=== PATIENT | male | born 1975 | race African-American/Black ===

== ENCOUNTER 2019-06-03 08:58 | Inpatient (IN) | payer MEDICAID ==
[~2019-06-03] VITALS: Ht 180.3 cm; Wt 104.0 kg
[2019-06-03 09:55] LABS: APPEARANCE,URINE CLOUDY (CLEAR); GLUCOSE, URINE (UA) >=1000 mg/dL (NEGATIVE); KETONES,URINE 15 mg/dL (NEGATIVE); LEUKOCYTE ESTERASE ,URINE NEGATIVE (NEGATIVE); NITRATE,URINE NEGATIVE (NEGATIVE); OCCULT BLOOD,URINE LARGE (NEGATIVE); PH,URINE 5.5 (5.0-8.0); PROTEIN,URINE SEE CONFIRM (NEGATIVE)
[2019-06-03 09:58] LABS: BILIRUBIN,URINE PRELIM. POSITIVE (NEGATIVE)
[2019-06-03 10:01] LABS: AMPHET/METH SCREEN,URINE POSITIVE (NEGATIVE); BARBITURATE SCREEN, URINE NEGATIVE (NEGATIVE); BENZODIAZEPINES SCREEN,URINE NEGATIVE (NEGATIVE); CANNABINOID SCREEN,URINE NEGATIVE (NEGATIVE); COCAINE SCREEN,URINE NEGATIVE (NEGATIVE); METHADONE SCREEN, URINE NEGATIVE (NEGATIVE); OPIATE SCREEN,URINE NEGATIVE (NEGATIVE); PHENCYCLIDINE SCREEN,URINE NEGATIVE (NEGATIVE)
[2019-06-03 10:05] LABS: SULFOSALICYLIC ACID,URINE 3+ (Negative)
[2019-06-03 10:07] LABS: BACTERIA,URINE Moderate /HPF (None Seen); WBC,URINE 0-2 /HPF (0-5)
[2019-06-03 10:08] LABS: COARSE GRANULAR CASTS,URINE 0-2 /LPF (None Seen); SQUAMOUS EPITHELIAL CELL,UR Few /LPF (None Seen)
[2019-06-03 10:35] LABS: BASOPHILS % (AUTO) 0.1 % (0.0-2.0); EOSINOPHILS % (AUTO) 0.2 % (1.0-6.0); HEMATOCRIT 43.1 % (41-53); HEMOGLOBIN 13.7 g/dL (13.5-17.5); LYMPHOCYTES # (AUTO) 1.8 K/uL (1.0-4.8); LYMPHOCYTES % (AUTO) 19.6 % (22.0-44.0); MEAN CORPUSCULAR HEMOGLOBIN 25.7 pg (26.0-34.0); MEAN CORPUSCULAR HGB CONC 31.9 G/dL (31.0-37.0); MEAN CORPUSCULAR VOLUME 81 fL (80-100); MONOCYTES # (AUTO) 0.5 K/uL (0.1-1.0); MONOCYTES % (AUTO) 5.7 % (2.0-9.0); NEUTROPHILS # (AUTO) 6.8 K/uL (1.8-7.7); NEUTROPHILS % (AUTO) 74.4 % (40.0-70.0); PLATELET COUNT (AUTO) 232 K/uL (150-450); RED BLOOD CELL COUNT(AUTO) 5.35 MIL/uL (4.50-5.90); RED CELL DISTRIBUTION WIDTH 13.7 % (11.5-14.5)
[2019-06-03 10:46] LABS: ANION GAP 9 mmol/L (8-16); CALCIUM, TOTAL 8.8 mg/dL (8.8-10.5); CARBON DIOXIDE 27 mmol/L (22-29); CHLORIDE 101 mmol/L (98-107); CREATININE 1.17 mg/dL (0.60-1.30); GLOMERULAR FILTR. RATE CALC > 60 mL/min (>60); GLUCOSE,RANDOM 188 mg/dL (70-110); POTASSIUM 3.4 mmol/L (3.5-5.1); SODIUM SERUM 137 mmol/L (136-145); UREA NITROGEN, BLOOD 15 mg/dL (7-18)
[2019-06-03 11:05] LABS: ALANINE AMINOTRANSFERASE 121 U/L (12-78); ALBUMIN 3.7 g/dL (3.4-5.0); ALKALINE PHOSPHATASE 70 U/L (46-116); ASPARTATE AMINOTRANSFERASE 448 U/L (15-37); BILIRUBIN,TOTAL 0.6 mg/dL (0.1-1.0); TOTAL PROTEIN, SERUM 7.2 g/dL (6.4-8.2)
[2019-06-03 11:17] LABS: LACTIC ACID 3.8 mmol/L (0.4-2.0)
[2019-06-03 12:08] LABS: CREATINE KINASE, TOTAL ONLY 36547 U/L (39-308)
[2019-06-03] MEDS ORDERED: SODIUM CHLORIDE 0.9% 1,000 ML IV ONE (12:30)
[2019-06-03] MEDS ORDERED: DEXTROSE 50%-WATER 25 GM/50 ML SYRINGE IVP PRN (13:00)
[2019-06-03] MEDS ORDERED: LORazepam 2 MG/ML VIAL IVP PRN (13:00)
[2019-06-03] MEDS ORDERED: POTASSIUM CHLORIDE 20 MEQ ER TABLET PO PRN (13:00)
[2019-06-03] MEDS ORDERED: POTASSIUM CHL 10 MEQ/WATER 50 ML IV PRN (13:00)
[2019-06-03] MEDS: SODIUM CHLORIDE 0.9% 1,000 ML IV SCH ×2 (13:32→22:55)
[2019-06-03] MEDS: CefTRIAXone 1 GM/DEXTROSE 50 ML IV SCH (13:32)
[2019-06-03] MEDS: DOCUSATE SODIUM 100 MG CAPSULE PO SCH (21:00)
[2019-06-03 22:25] LABS: GLUCOSE,POINT OF CARE 181 MG/DL (70-110)
[2019-06-03 23:00] VITALS: BP 139/78
[2019-06-03] MEDS: INSULIN LISPRO 100 UNITS/ML SQ PRN (23:36)
[2019-06-04 05:01] VITALS: BP 141/61
[2019-06-04] MEDS: ACETAMINOPHEN 325 MG TABLET PO PRN ×2 (05:17→20:19)
[2019-06-04 07:41] VITALS: BP 128/75
[2019-06-04 08:49] LABS: ANION GAP 4 mmol/L (8-16); CALCIUM, TOTAL 8.5 mg/dL (8.8-10.5); CARBON DIOXIDE 27 mmol/L (22-29); CHLORIDE 103 mmol/L (98-107); CREATININE 0.75 mg/dL (0.60-1.30); GLUCOSE,RANDOM 163 mg/dL (70-110); POTASSIUM 3.7 mmol/L (3.5-5.1); SODIUM SERUM 134 mmol/L (136-145); UREA NITROGEN, BLOOD 10 mg/dL (7-18)
[2019-06-04] MEDS: MULTIVITAMINS WITH MINERALS, THERAPEUTIC TABLET PO SCH (09:58)
[2019-06-04] MEDS: SODIUM CHLORIDE 0.9% 1,000 ML IV SCH ×2 (09:58→21:03)
[2019-06-04] MEDS: FAMOTIDINE 20 MG TABLET PO SCH (09:58)
[2019-06-04] MEDS: ASPIRIN 81 MG CHEWABLE TABLET PO SCH (09:58)
[2019-06-04] MEDS: DOCUSATE SODIUM 100 MG CAPSULE PO SCH ×2 (09:58→20:20)
[2019-06-04 10:11] LABS: CREATINE KINASE, TOTAL ONLY 15772 U/L (39-308); GLOMERULAR FILTR. RATE CALC > 60 mL/min (>60)
[2019-06-04 10:49] VITALS: BP 146/76
[2019-06-04 11:05] LABS: GLUCOMETER DEV NAME(LOC) 5N.2; GLUCOSE,POINT OF CARE 184 MG/DL (70-110)
[2019-06-04] MEDS: CefTRIAXone 1 GM/DEXTROSE 50 ML IV SCH (12:34)
[2019-06-04] MEDS: INSULIN LISPRO 100 UNITS/ML SQ PRN ×2 (12:35→20:49)
[2019-06-04 15:40] VITALS: BP 127/69
[2019-06-04 20:00] VITALS: BP 140/75
[2019-06-04 22:37] LABS: GLUCOMETER DEV NAME(LOC) 5N.2; GLUCOSE,POINT OF CARE 180 MG/DL (70-110)
[2019-06-04 22:37] LABS: GLUCOMETER DEV NAME(LOC) 5N.2; GLUCOSE,POINT OF CARE 167 MG/DL (70-110)
[2019-06-04 22:37] LABS: GLUCOMETER DEV NAME(LOC) 5N.2; GLUCOSE,POINT OF CARE 168 MG/DL (70-110)
[2019-06-05] VITALS (7 sets, daily range): BP systolic 102–140; BP diastolic 46–84
[2019-06-05] MEDS: SODIUM CHLORIDE 0.9% 1,000 ML IV SCH ×4 (04:15→23:48)
[2019-06-05] MEDS: INSULIN LISPRO 100 UNITS/ML SQ PRN ×4 (06:39→21:55)
[2019-06-05 06:43] LABS: BASOPHILS % (AUTO) 0.4 % (0.0-2.0); EOSINOPHILS % (AUTO) 1.9 % (1.0-6.0); HEMOGLOBIN 12.4 g/dL (13.5-17.5); LYMPHOCYTES # (AUTO) 2.2 K/uL (1.0-4.8); LYMPHOCYTES % (AUTO) 26.7 % (22.0-44.0); MEAN CORPUSCULAR HEMOGLOBIN 25.4 pg (26.0-34.0); MEAN CORPUSCULAR HGB CONC 31.8 G/dL (31.0-37.0); MEAN CORPUSCULAR VOLUME 80 fL (80-100); MONOCYTES # (AUTO) 0.5 K/uL (0.1-1.0); MONOCYTES % (AUTO) 6.5 % (2.0-9.0); NEUTROPHILS # (AUTO) 5.3 K/uL (1.8-7.7); NEUTROPHILS % (AUTO) 64.5 % (40.0-70.0); PLATELET COUNT (AUTO) 237 K/uL (150-450); RED BLOOD CELL COUNT(AUTO) 4.88 MIL/uL (4.50-5.90); RED CELL DISTRIBUTION WIDTH 13.6 % (11.5-14.5)
[2019-06-05 07:36] LABS: ALANINE AMINOTRANSFERASE 86 U/L (12-78); ALBUMIN 2.8 g/dL (3.4-5.0); ALKALINE PHOSPHATASE 64 U/L (46-116); ANION GAP 5 mmol/L (8-16); ASPARTATE AMINOTRANSFERASE 164 U/L (15-37); BILIRUBIN,TOTAL 0.2 mg/dL (0.1-1.0); CALCIUM, TOTAL 8.8 mg/dL (8.8-10.5); CARBON DIOXIDE 28 mmol/L (22-29); CHLORIDE 102 mmol/L (98-107); CREATININE 0.73 mg/dL (0.60-1.30); GLUCOSE,RANDOM 155 mg/dL (70-110); POTASSIUM 3.7 mmol/L (3.5-5.1); SODIUM SERUM 135 mmol/L (136-145); TOTAL PROTEIN, SERUM 6.2 g/dL (6.4-8.2); UREA NITROGEN, BLOOD 9 mg/dL (7-18)
[2019-06-05 07:37] LABS: CREATINE KINASE, TOTAL ONLY 5556 U/L (39-308); GLOMERULAR FILTR. RATE CALC > 60 mL/min (>60)
[2019-06-05] MEDS: ASPIRIN 81 MG CHEWABLE TABLET PO SCH (09:04)
[2019-06-05] MEDS: DOCUSATE SODIUM 100 MG CAPSULE PO SCH ×2 (09:04→21:43)
[2019-06-05] MEDS: FAMOTIDINE 20 MG TABLET PO SCH (09:04)
[2019-06-05] MEDS: MULTIVITAMINS WITH MINERALS, THERAPEUTIC TABLET PO SCH (09:04)
[2019-06-05] MEDS: IBUPROFEN 400 MG TABLET PO PRN (09:04)
[2019-06-05] MEDS: CefTRIAXone 1 GM/DEXTROSE 50 ML IV SCH (12:23)
[2019-06-05 17:01] LABS: GLUCOMETER DEV NAME(LOC) 5N.2; GLUCOSE,POINT OF CARE 233 MG/DL (70-110)
[2019-06-05 17:02] LABS: GLUCOMETER DEV NAME(LOC) 5N.1; GLUCOSE,POINT OF CARE 199 MG/DL (70-110)
[2019-06-05 23:15] LABS: GLUCOMETER DEV NAME(LOC) 5N.1; GLUCOSE,POINT OF CARE 195 MG/DL (70-110)
[2019-06-05 23:16] LABS: GLUCOMETER DEV NAME(LOC) 5N.1; GLUCOSE,POINT OF CARE 161 MG/DL (70-110)
[2019-06-06] VITALS (7 sets, daily range): BP systolic 107–147; BP diastolic 52–78
[2019-06-06] MEDS: ACETAMINOPHEN 325 MG TABLET PO PRN (00:21)
[2019-06-06] MEDS: IBUPROFEN 400 MG TABLET PO PRN ×2 (00:22→19:50)
[2019-06-06 01:06] LABS: GLUCOMETER DEV NAME(LOC) 5N.2; GLUCOSE,POINT OF CARE 154 MG/DL (70-110)
[2019-06-06] MEDS: SODIUM CHLORIDE 0.9% 1,000 ML IV SCH ×3 (06:30→22:08)
[2019-06-06] MEDS: INSULIN LISPRO 100 UNITS/ML SQ PRN ×4 (06:48→20:51)
[2019-06-06 08:46] LABS: BASOPHILS % (AUTO) 0.3 % (0.0-2.0); EOSINOPHILS % (AUTO) 2.4 % (1.0-6.0); HEMOGLOBIN 12.6 g/dL (13.5-17.5); LYMPHOCYTES # (AUTO) 2.6 K/uL (1.0-4.8); LYMPHOCYTES % (AUTO) 32.5 % (22.0-44.0); MEAN CORPUSCULAR HEMOGLOBIN 24.9 pg (26.0-34.0); MEAN CORPUSCULAR HGB CONC 31.4 G/dL (31.0-37.0); MEAN CORPUSCULAR VOLUME 79 fL (80-100); MONOCYTES # (AUTO) 0.6 K/uL (0.1-1.0); MONOCYTES % (AUTO) 7.2 % (2.0-9.0); NEUTROPHILS # (AUTO) 4.6 K/uL (1.8-7.7); NEUTROPHILS % (AUTO) 57.6 % (40.0-70.0); PLATELET COUNT (AUTO) 264 K/uL (150-450); RED BLOOD CELL COUNT(AUTO) 5.05 MIL/uL (4.50-5.90); RED CELL DISTRIBUTION WIDTH 13.5 % (11.5-14.5)
[2019-06-06] MEDS: DOCUSATE SODIUM 100 MG CAPSULE PO SCH ×2 (09:00→21:00)
[2019-06-06] MEDS: FAMOTIDINE 20 MG TABLET PO SCH (09:00)
[2019-06-06 09:02] LABS: ANION GAP 7 mmol/L (8-16); CALCIUM, TOTAL 8.6 mg/dL (8.8-10.5); CARBON DIOXIDE 27 mmol/L (22-29); CHLORIDE 103 mmol/L (98-107); CREATININE 0.75 mg/dL (0.60-1.30); GLOMERULAR FILTR. RATE CALC > 60 mL/min (>60); GLUCOSE,RANDOM 177 mg/dL (70-110); POTASSIUM 3.8 mmol/L (3.5-5.1); SODIUM SERUM 137 mmol/L (136-145); UREA NITROGEN, BLOOD 9 mg/dL (7-18)
[2019-06-06 09:25] LABS: ALANINE AMINOTRANSFERASE 73 U/L (12-78); ALBUMIN 2.9 g/dL (3.4-5.0); ALKALINE PHOSPHATASE 67 U/L (46-116); ASPARTATE AMINOTRANSFERASE 79 U/L (15-37); BILIRUBIN,TOTAL 0.2 mg/dL (0.1-1.0); TOTAL PROTEIN, SERUM 6.4 g/dL (6.4-8.2)
[2019-06-06 09:27] LABS: CREATINE KINASE, TOTAL ONLY 2182 U/L (39-308)
[2019-06-06] MEDS: ASPIRIN 81 MG CHEWABLE TABLET PO SCH (10:16)
[2019-06-06] MEDS: MULTIVITAMINS WITH MINERALS, THERAPEUTIC TABLET PO SCH (10:16)
[2019-06-06] MEDS: CefTRIAXone 1 GM/DEXTROSE 50 ML IV SCH (12:31)
[2019-06-06 18:31] LABS: GLUCOMETER DEV NAME(LOC) 6N.2; GLUCOSE,POINT OF CARE 172 MG/DL (70-110)
[2019-06-06 23:21] LABS: GLUCOMETER DEV NAME(LOC) 5N.2; GLUCOSE,POINT OF CARE 222 MG/DL (70-110)
[2019-06-06 23:21] LABS: GLUCOMETER DEV NAME(LOC) 5N.2; GLUCOSE,POINT OF CARE 143 MG/DL (70-110)
[2019-06-07 01:25] LABS: GLUCOMETER DEV NAME(LOC) 4E.2; GLUCOSE,POINT OF CARE 191 MG/DL (70-110)
[2019-06-07 04:00] VITALS: BP 120/71
[2019-06-07] MEDS: SODIUM CHLORIDE 0.9% 1,000 ML IV SCH ×3 (05:08→15:40)
[2019-06-07 05:37] LABS: GLUCOMETER DEV NAME(LOC) 4E.2; GLUCOSE,POINT OF CARE 183 MG/DL (70-110)
[2019-06-07] MEDS: INSULIN LISPRO 100 UNITS/ML SQ PRN ×4 (05:53→21:59)
[2019-06-07 07:26] VITALS: BP 120/62
[2019-06-07] MEDS: DOCUSATE SODIUM 100 MG CAPSULE PO SCH ×2 (09:00→21:00)
[2019-06-07] MEDS: MULTIVITAMINS WITH MINERALS, THERAPEUTIC TABLET PO SCH (09:31)
[2019-06-07] MEDS: FAMOTIDINE 20 MG TABLET PO SCH (09:31)
[2019-06-07] MEDS: ASPIRIN 81 MG CHEWABLE TABLET PO SCH (09:31)
[2019-06-07] MEDS: RisperiDONE 1 MG TABLET PO SCH ×2 (09:31→21:05)
[2019-06-07 11:32] VITALS: BP 135/81
[2019-06-07] MEDS: CefTRIAXone 1 GM/DEXTROSE 50 ML IV SCH (12:20)
[2019-06-07 15:22] VITALS: BP 129/65
[2019-06-07 17:26] LABS: GLUCOMETER DEV NAME(LOC) 6N.2; GLUCOSE,POINT OF CARE 167 MG/DL (70-110)
[2019-06-07 17:26] LABS: GLUCOMETER DEV NAME(LOC) 6N.2; GLUCOSE,POINT OF CARE 196 MG/DL (70-110)
[2019-06-07] MEDS: IBUPROFEN 400 MG TABLET PO PRN (18:49)
[2019-06-07 19:47] VITALS: BP 113/60
[2019-06-08 03:40] LABS: GLUCOMETER DEV NAME(LOC) 6N.2; GLUCOSE,POINT OF CARE 196 MG/DL (70-110)
[2019-06-08 05:05] VITALS: BP 109/63
[2019-06-08 06:11] LABS: GLUCOMETER DEV NAME(LOC) 4E.2; GLUCOSE,POINT OF CARE 170 MG/DL (70-110)
[2019-06-08] MEDS: INSULIN LISPRO 100 UNITS/ML SQ PRN ×3 (06:29→17:33)
[2019-06-08] MEDS: MULTIVITAMINS WITH MINERALS, THERAPEUTIC TABLET PO SCH (07:56)
[2019-06-08] MEDS: ASPIRIN 81 MG CHEWABLE TABLET PO SCH (07:56)
[2019-06-08] MEDS: FAMOTIDINE 20 MG TABLET PO SCH (07:56)
[2019-06-08] MEDS: RisperiDONE 1 MG TABLET PO SCH (07:56)
[2019-06-08] MEDS: DOCUSATE SODIUM 100 MG CAPSULE PO SCH (07:56)
[2019-06-08 07:58] VITALS: BP 110/54
[2019-06-08 11:29] VITALS: BP 116/64
[2019-06-08] MEDS: CefTRIAXone 1 GM/DEXTROSE 50 ML IV SCH (12:23)
[2019-06-08 15:30] VITALS: BP 123/72
[2019-06-08 18:36] LABS: GLUCOMETER DEV NAME(LOC) 6N.2; GLUCOSE,POINT OF CARE 201 MG/DL (70-110)
[2019-06-09 00:21] LABS: GLUCOMETER DEV NAME(LOC) 4E.2; GLUCOSE,POINT OF CARE 160 MG/DL (70-110)
== END 2019-06-08 18:38 | DRG 557 ==
LOC: EMS 09:03 → EDBD 22:30 → 5N 22:30 → 4E 06-06 14:28
PROVIDERS: ADMIT Internal Medicine; ATTEND Internal Medicine
DX: M62.82 Rhabdomyolysis (principal); G92 Toxic encephalopathy; E87.2 Acidosis; F15.159 Other stimulant abuse with stimulant-induced psychotic disorder, unspecified; E11.9 Type 2 diabetes mellitus without complications; Z59.0 Homelessness
CPT/HCPCS: 83605; 87040; 87086; 93005; 97116; 97162; G0378; J0696; J7030

== ENCOUNTER 2019-06-08 18:15 | Inpatient (IN) | payer MEDICAID ==
[~2019-06-08] VITALS: Ht 182.9 cm; Wt 102.3 kg
[2019-06-08] MEDS ORDERED: HALOPERIDOL 5 MG TABLET PO PRN (19:45)
[2019-06-08] MEDS: RisperiDONE 1 MG TABLET PO SCH (20:49)
[2019-06-08 21:01] VITALS: BP 126/86
[2019-06-09 08:45] VITALS: BP 127/64
[2019-06-09 09:07] VITALS: BP 127/64
[2019-06-09] MEDS ORDERED: PETROLATUM,WHITE 28 GM JELLY TP PRN (09:45)
[2019-06-09] MEDS ORDERED: MAG HYDROX/AL HYDROX/SIMETH ES 30 ML SUSPENSION UDCUP PO PRN (09:45)
[2019-06-09] MEDS ORDERED: BENZOCAINE/MENTHOL LOZENGE MM PRN (09:45)
[2019-06-09] MEDS ORDERED: ACETAMINOPHEN 325 MG TABLET PO PRN (09:45)
[2019-06-09] MEDS ORDERED: CloNIDine HCL 0.1 MG TABLET PO PRN (09:45)
[2019-06-09] MEDS ORDERED: MAGNESIUM HYDROXIDE SUSPENSION 30 ML UDCUP PO PRN (09:45)
[2019-06-09] MEDS ORDERED: ONDANSETRON HCL 4 MG TABLET PO PRN (09:45)
[2019-06-09] MEDS ORDERED: LOPERAMIDE HCL 2 MG CAPSULE PO PRN (09:45)
[2019-06-09] MEDS ORDERED: OMEPRAZOLE 20 MG CAPSULE PO PRN (09:45)
[2019-06-09] MEDS ORDERED: ALBUTEROL SULFATE HFA 90 MCG/PUFF 8 GM INHALER IH PRN (09:45)
[2019-06-09] MEDS ORDERED: DOCUSATE SODIUM 100 MG CAPSULE PO PRN (09:45)
[2019-06-09] MEDS ORDERED: BACITRACIN 28.4 GM OINTMENT TP PRN (09:45)
[2019-06-09] MEDS: RisperiDONE 1 MG TABLET PO SCH ×2 (10:22→16:59)
[2019-06-09] MEDS: OXcarbazepine 300 MG TABLET PO SCH (16:58)
[2019-06-09 16:59] LABS: APPEARANCE,URINE CLEAR (CLEAR); BILIRUBIN,URINE NEGATIVE (NEGATIVE); GLUCOSE, URINE (UA) 250 mg/dL (NEGATIVE); KETONES,URINE NEGATIVE (NEGATIVE); LEUKOCYTE ESTERASE ,URINE NEGATIVE (NEGATIVE); NITRATE,URINE NEGATIVE (NEGATIVE); OCCULT BLOOD,URINE NEGATIVE (NEGATIVE); PROTEIN,URINE NEGATIVE (NEGATIVE); UROBILINOGEN,URINE 0.2 mg/dL (<=1.0)
[2019-06-09] MEDS: DIVALPROEX SODIUM 500 MG DR TABLET PO SCH (17:00)
[2019-06-09 17:12] LABS: RBC,URINE None Seen /HPF (0-2)
[2019-06-09 17:13] LABS: BACTERIA,URINE None Seen /HPF (None Seen); SQUAMOUS EPITHELIAL CELL,UR Rare /LPF (None Seen); WBC,URINE None Seen /HPF (0-5)
[2019-06-09 17:50] VITALS: BP 131/71
[2019-06-09] MEDS: LORazepam 2 MG TABLET PO PRN (23:47)
[2019-06-09] MEDS: ZOLPIDEM TARTRATE 10 MG TABLET PO PRN (23:47)
[2019-06-10] MEDS: IBUPROFEN 600 MG TABLET PO PRN (00:35)
[2019-06-10 00:36] VITALS: BP 130/75
[2019-06-10 07:35] LABS: BASOPHILS % (AUTO) 0.6 % (0.0-2.0); EOSINOPHILS % (AUTO) 1.6 % (1.0-6.0); HEMATOCRIT 42.1 % (41-53); HEMOGLOBIN 13.4 g/dL (13.5-17.5); LYMPHOCYTES # (AUTO) 2.3 K/uL (1.0-4.8); LYMPHOCYTES % (AUTO) 29.2 % (22.0-44.0); MEAN CORPUSCULAR HEMOGLOBIN 25.5 pg (26.0-34.0); MEAN CORPUSCULAR HGB CONC 31.8 G/dL (31.0-37.0); MEAN CORPUSCULAR VOLUME 80 fL (80-100); MONOCYTES # (AUTO) 0.7 K/uL (0.1-1.0); MONOCYTES % (AUTO) 9.2 % (2.0-9.0); NEUTROPHILS # (AUTO) 4.6 K/uL (1.8-7.7); NEUTROPHILS % (AUTO) 59.4 % (40.0-70.0); PLATELET COUNT (AUTO) 319 K/uL (150-450); RED BLOOD CELL COUNT(AUTO) 5.26 MIL/uL (4.50-5.90)
[2019-06-10 07:43] LABS: HEMOGLOBIN A1C 6.8 % (4.5-6.2)
[2019-06-10 08:04] VITALS: BP 119/73
[2019-06-10 08:08] LABS: ALANINE AMINOTRANSFERASE 56 U/L (12-78); ALBUMIN 3.2 g/dL (3.4-5.0); ALKALINE PHOSPHATASE 70 U/L (46-116); ANION GAP 9 mmol/L (8-16); ASPARTATE AMINOTRANSFERASE 23 U/L (15-37); BILIRUBIN,TOTAL 0.3 mg/dL (0.1-1.0); CALCIUM, TOTAL 8.8 mg/dL (8.8-10.5); CARBON DIOXIDE 25 mmol/L (22-29); CHLORIDE 100 mmol/L (98-107); CHOL/HDL RATIO 4.2 (4.2-7.3); CHOLESTEROL 150 mg/dL (131-200); CREATINE KINASE, TOTAL ONLY 247 U/L (39-308); CREATININE 0.92 mg/dL (0.60-1.30); GLOMERULAR FILTR. RATE CALC > 60 mL/min (>60); GLUCOSE,RANDOM 171 mg/dL (70-110); HDL CHOLESTEROL 36 mg/dL (40-60); LDL CHOL (CALC.) 44 mg/dL (0-130); POTASSIUM 4.1 mmol/L (3.5-5.1); SODIUM SERUM 134 mmol/L (136-145); TOTAL PROTEIN, SERUM 6.9 g/dL (6.4-8.2); TRIGLYCERIDES 350 mg/dL (15-150)
[2019-06-10 08:29] LABS: UREA NITROGEN, BLOOD 16 mg/dL (7-18)
[2019-06-10] MEDS: DIVALPROEX SODIUM 500 MG DR TABLET PO SCH ×3 (08:48→16:15)
[2019-06-10] MEDS: OXcarbazepine 300 MG TABLET PO SCH ×2 (08:48→16:15)
[2019-06-10] MEDS: RisperiDONE 1 MG TABLET PO SCH ×2 (08:48→18:00)
[2019-06-10] MEDS: LORazepam 2 MG TABLET PO PRN ×2 (08:48→23:54)
[2019-06-10 16:52] VITALS: BP 119/67
[2019-06-10] MEDS: ZOLPIDEM TARTRATE 10 MG TABLET PO PRN (22:56)
[2019-06-10 23:50] VITALS: BP 117/87
[2019-06-11] MEDS: RisperiDONE 1 MG TABLET PO SCH ×2 (10:09→16:13)
[2019-06-11] MEDS: OMEGA-3/DHA/EPA/FISH OIL 1,000 MG CAPSULE PO SCH (10:09)
[2019-06-11] MEDS: OXcarbazepine 300 MG TABLET PO SCH ×2 (10:09→16:14)
[2019-06-11] MEDS: DIVALPROEX SODIUM 500 MG DR TABLET PO SCH ×2 (10:09→16:13)
[2019-06-11] MEDS: MAGNESIUM OXIDE 400 MG TABLET PO SCH ×2 (10:09→16:14)
[2019-06-11 13:31] VITALS: BP 133/77
[2019-06-11 13:47] LABS: MAGNESIUM 1.6 mg/dL (1.80-2.40); PHOSPHORUS 2.5 mg/dL (2.5-4.9)
[2019-06-11 16:08] VITALS: BP 124/78
[2019-06-11 18:11] VITALS: BP 129/65
[2019-06-11] MEDS: LORazepam 2 MG TABLET PO PRN (18:13)
[2019-06-11 23:30] VITALS: BP 132/98
[2019-06-11] MEDS: IBUPROFEN 600 MG TABLET PO PRN (23:35)
[2019-06-11] MEDS: ZOLPIDEM TARTRATE 10 MG TABLET PO PRN (23:35)
[2019-06-12] MEDS: OMEGA-3/DHA/EPA/FISH OIL 1,000 MG CAPSULE PO SCH (08:16)
[2019-06-12] MEDS: RisperiDONE 1 MG TABLET PO SCH ×2 (08:16→15:57)
[2019-06-12] MEDS: MAGNESIUM OXIDE 400 MG TABLET PO SCH ×2 (08:16→15:57)
[2019-06-12] MEDS: DIVALPROEX SODIUM 500 MG DR TABLET PO SCH ×2 (08:16→16:00)
[2019-06-12] MEDS: OXcarbazepine 300 MG TABLET PO SCH ×2 (08:18→15:57)
[2019-06-12] MEDS: IBUPROFEN 600 MG TABLET PO PRN (16:23)
[2019-06-12 16:24] VITALS: BP 146/85
[2019-06-12] MEDS ORDERED: RISP1 PO (18:35)
[2019-06-12] MEDS ORDERED: OXCA300T29 PO (18:37)
[2019-06-13] MEDS ORDERED: OXcarbazepine 300 MG TABLET PO SCH (09:00)
== END 2019-06-12 19:00 | disposition home or self-care (01) | DRG 750 ==
LOC: 3EC 18:15
PROVIDERS: ADMIT Psychiatry & Neurology Psychiatry; ATTEND Psychiatry & Neurology Psychiatry
DX: F25.9 Schizoaffective disorder, unspecified (principal); E87.2 Acidosis; M62.82 Rhabdomyolysis; F15.10 Other stimulant abuse, uncomplicated; F41.9 Anxiety disorder, unspecified; G47.00 Insomnia, unspecified; R45.851 Suicidal ideations; Z59.0 Homelessness; Z72.0 Tobacco use; Z71.51 Drug abuse counseling and surveillance of drug abuser; Z71.6 Tobacco abuse counseling
CPT/HCPCS: 83036; 83735; 84100; 84443; 87081